=== PATIENT | female | born 1945 | race Caucasian/White ===

== ENCOUNTER 2018-05-14 21:01 | Inpatient (IN) | payer MEDICAID, OTHER ==
[~2018-05-14] VITALS: Ht 167.6 cm; Wt 122.5 kg
--- NOTE | 2018-05-14 21:01 | NUR ---
PT ALINE ALS. TAKEN TO BED 7
[2018-05-14 21:02] VITALS: BP 112/55
[2018-05-14] MEDS ORDERED: NACL 0.9% 500 ML IV SCH (21:06)
[2018-05-14] MEDS ORDERED: DILTIAZEM 25 MG/5 ML VIAL IVP ONE (21:10)
--- NOTE | 2018-05-14 21:10 | NUR ---
73/F BIBA FROM HOME FOR SOB, PRODUCTIVE COUGH, AND L FLANK PAIN, SINCE LAST NIGHT, WORSENING TODAY. PER TRIAGE, PT RECEIVED ALBUTEROL [facility]ATMENT [facility], 20G IV PLACED ON R HAND. PT REPORTS SUBJECTIVE FEVER/CHILLS AND VOMITING X3 EPISODES. PT DENIES CP OR HEADACHE. PT ARRIVES TO ED, AOX4, GCS 15, SKIN NORMAL COLOR WARM AND DRY, SPO2 92% ON O2 2L NC, RR 24 EVEN AND MILDLY LABORED. LUNG SOUNDS CLEAR BL. BP 112/55, HR 132-150, A.FIB ON MONITOR. SPO2 AND CORE BAKER IN PLACE. ER MD MADE AWARE. HX A.FIB, COPD, HTN, GERD, CHOLECYSTECTOMY, 1PPD SMOKER RX OMEPRAZOLE, ELAQUIS, LOSARTAN, LASIX, ALBUTEROL
[2018-05-14 21:32] LABS: HEMATOCRIT 40.5 % (36-48); HEMOGLOBIN 13.5 g/dL (12.0-16.0); MEAN CORPUSCULAR HEMOGLOBIN 33 pg (27-31); MEAN CORPUSCULAR HGB CONC 33 g/dL (33-37); MEAN CORPUSCULAR VOLUME 99.7 fL (80-94); PLATELET COUNT (AUTO) 181 K/uL (140-450); RED BLOOD CELL COUNT(AUTO) 4.07 MIL/uL (4.20-5.40); RED CELL DISTRIBUTION WIDTH 15.2 % (11.6-13.7); WHITE BLOOD COUNT (AUTO) 20.1 K/uL (4.8-10.8)
[2018-05-14 21:39] LABS: ANION GAP 16.1 (8-16); CARBON DIOXIDE 25.5 mmol/L (21-32); CHLORIDE 96 mmol/L (98-107); CREATININE 1.3 mg/dL (0.6-1.3); GLUCOSE 111 mg/dL (74-106); POTASSIUM 3.6 mmol/L (3.5-5.1); SODIUM SERUM 134 mmol/L (136-145); UREA NITROGEN, BLOOD 14 mg/dL (7-18)
[2018-05-14] MEDS ORDERED: KETOROLAC 30 MG/ML VIAL IVP ONE (21:40)
[2018-05-14 21:42] LABS: PROTHROMBIN TIME 12.4 secs (10.8-13.4)
--- NOTE | 2018-05-14 21:42 | NUR ---
Dr. Mckenzie evaluating patient at bedside.
[2018-05-14 21:45] LABS: ALBUMIN 2.9 g/dL (3.4-5.0); ASPARTATE AMINOTRANSFERASE 30 U/L (15-37); TOTAL BILIRUBIN 2.7 mg/dL (0.0-1.0)
[2018-05-14 21:46] LABS: LYMPHOCYTES % (MANUAL) 5 % (20-46); METAMYELOCYTES % 1 % (0-0); MONOCYTES % (MANUAL) 4 % (5-12)
[2018-05-14] MEDS ORDERED: PIPERACILLIN/TAZOBACTAM 3.375 GM in DEXTROSE 5% 50 ML IV ONE (22:00)
--- NOTE | 2018-05-14 22:00 | NUR ---
PT LAYING IN BED, RR EVEN AND MILDLY LABORED, ON O2 3L NC. PT REPORTS IMPROVEMENT IN L FLANK PAIN, REPORTS BEING COMFORTABLE. VS NOTED, HR IMPROVING AT 95-104. ALL NEEDS MET AT THIS TIME.
[2018-05-14] MEDS ORDERED: LOSA25TA43 PO ×2 (22:09→22:57)
[2018-05-14] MEDS ORDERED: PRON INH ×2 (22:09→22:57)
[2018-05-14] MEDS ORDERED: OMEP20TC12 PO ×2 (22:09→22:57)
[2018-05-14] MEDS ORDERED: FURO-572 PO ×2 (22:09→22:57)
[2018-05-14] MEDS ORDERED: APIX5TAB PO ×2 (22:09→22:57)
--- NOTE | 2018-05-14 22:10 | NUR ---
DR DENNY DISCUSSING CODE STATUS WITH PT. PT STATED SHE WANTED TO HAVE CPR PERFORMED BUT REFUSES INTUBATION.
--- NOTE | 2018-05-14 22:10 | NUR ---
DR DENNY AT BEDSIDE.
[2018-05-14] MEDS ORDERED: PIPERACILLIN/TAZOBACTAM 3.375 GM VIAL IV ONE (22:16)
[2018-05-14] MEDS ORDERED: ALBUTEROL SULFATE/IPRATROPIU 3 ML SOL IH PRN (22:35)
[2018-05-14] MEDS ORDERED: ONDANSETRON 4 MG/2 ML VIAL IM/IVP PRN (22:35)
[2018-05-14] MEDS ORDERED: MEDICATION REC. PHARMACY CONS. 1 EA MISC MC PRN (22:35)
[2018-05-14] MEDS ORDERED: MELATONIN 3 MG TAB PO PRN (22:35)
[2018-05-14] MEDS ORDERED: FAMOTIDINE 20 MG TAB PO ONE (22:35)
[2018-05-14] MEDS ORDERED: DOCUSATE SODIUM 100 MG GELCAP PO PRN (22:35)
[2018-05-14 22:53] LABS: APPEARANCE,URINE SL CLOUDY (CLEAR); BILIRUBIN,URINE 2+ (NEGATIVE); BLOOD, URINE 3+ (NEGATIVE); COLOR,URINE YELLOW (YELLOW); LEUKOCYTE ESTERASE ,URINE TRACE (NEGATIVE); NITRITE, URINE POSITIVE (NEGATIVE); UGLUCOSE TRACE (NEGATIVE)
[2018-05-14] MEDS: NICOTINE TRANSD SYS 21 MG/24 HR PATCH TD SCH (23:10)
--- NOTE | 2018-05-14 23:25 | NUR ---
Patient will be admitted to care of DR. HANEY. Admited to TELE. Will go to [id number]. Belongings list completed. Report to JULIO SWEENEY.
[2018-05-14 23:33] LABS: WBC,URINE 0-5 /HPF (0-5)
[2018-05-14 23:35] VITALS: BP 91/44
--- NOTE | 2018-05-14 23:35 | NUR ---
ADMITTED A 73F FROM ER. CAME BY MICH WITH ER NURSE ,GAVE REPORT. PT IS AWAKE,ALERT AND ORIENTED X4. ON O23L/NC. O2 SAT 94%. CAME DUE TO SOB, COUGH AND BACK PAIN X 1 DAY. ABLE TO TRANSFER FROM [facility] TO BED. SHE SAID SHE IS ABLE AMBULATE AT HOME . MADE COMFORTABLE IN BED. PLACED ON TELE MONITOR. SKIN INTACT. PLAN OF CARE DISCUSSED AND VERBALIZED UNDERSTANDING. ORIENTED TO ROOM AND HOSPITAL ROUTINES. BED ON LOWEST POSITION. FREQUENT CHECK NEEDED.CALL LIGHT PLACED WITHIN EASY REACH. WILL FOLLOW UP ADMIT ORDERS. WILL CONTINUE TO MONITOR.
[2018-05-14 23:37] LABS: MAGNESIUM 1.3 mg/dL (1.8-2.4); THYROID STIMULATING HORMONE 1.9 uIU/mL (0.34-3.74)
[2018-05-14] MEDS ORDERED: PETROLATUM WHITE 30 GM TUBE TP SCH (23:40)
[2018-05-15 00:15] LABS: BARBITURATE, URINE NEGATIVE ng/ml (NEG <=200); BENZODIAZEPINE, URINE NEGATIVE ng/mL (NEG <=200); CANNABINOID, URINE NEGATIVE ng/mL (NEG <=50); COCAINE, URINE NEGATIVE ng/mL (NEG <=300); OPIATE, URINE NEGATIVE ng/mL (NEG <=2000); PHENCYCLIDINE SCREEN,URINE NEGATIVE ng/mL (NEG <=25)
[2018-05-15] MEDS: guaiFENesin 20 MG/ML UDC PO PRN (00:28)
[2018-05-15] MEDS: NACL 0.9% 1,000 ML IV SCH ×4 (00:29→23:00)
[2018-05-15] MEDS ORDERED: MAG SULF 2000 MG/WATER PREMIX 50 ML IV SCH (00:30)
--- NOTE | 2018-05-15 00:30 | NUR ---
DAUGHTER ELDER CALLED AND JUST WANTS TO KNOW HOW PT IS DOING. GIVEN UPDATE .
--- NOTE | 2018-05-15 02:04 | NUR ---
PT C/O BACK PAIN . REFUSED ANY TYLENOL. DR. DENNY,RESIDENT MADE AWARE. HEATING PAD APPLIED TO BACK ORDERED. WILL CONTINUE TO MONITOR
--- NOTE | 2018-05-15 02:38 | NUR ---
PT STILL C/O BACK PAIN EVEN WITH K PAD /HEATING PAD . DR. DENNY MADE AWARE . WILL DO ORDERS.
[2018-05-15] MEDS: traMADol 50 MG TAB PO PRN ×3 (02:54→15:42)
[2018-05-15] MEDS ORDERED: KETOROLAC 15 MG/ML VIAL IVP SCH (03:00)
--- NOTE | 2018-05-15 03:54 | NUR ---
MADE ROUNDS. SLEEPING AT THIS TIME. NO S/S OF ANY DISCOMFORT NOR PAIN NOTED. WILL CONTINUE TO MONITOR.
[2018-05-15 06:00] VITALS: BP 98/59
--- NOTE | 2018-05-15 06:00 | NUR ---
ASSISTED UP TO THE BSC. VOIDED TO A DARK BEKAH URINE. ENCOURAGED TO DRINK MORE FLUIDS.
[2018-05-15] MEDS ORDERED: PIPERACILLIN/TAZOBACTAM 2.25 GM VIAL IV ONE (06:07)
[2018-05-15] MEDS ORDERED: PIPERACILLIN/TAZOBACTAM 2.25 GM in DEXTROSE 5% 50 ML IV SCH (07:00)
--- NOTE | 2018-05-15 07:25 | NUR ---
ENDORSED PT IN STABLE CONDITION IN STABLE CONDITION.
--- NOTE | 2018-05-15 07:26 | NUR ---
REPORT RECEIVED FROM MASTER DYER NURSE, PT SLEEPING QUIETLY IN NAD, RESP EVEN UNLABORED ON 3L O2 NC, AROUSES EASILY TO VOICE, DENIES PAIN OR NEEDS AT THIST STEPHANIE, POC REVIEWED, FALLS BACK TO SLEEP IMMEDIATELY, CALL SCHNEIDER WITHIN REACH, ALL SAFETY MEASURES IN PLACE, WILL CONTINUE TO MONITOR.
[2018-05-15 07:42] LABS: ANION GAP 13.8 (8-16); CHLORIDE 100 mmol/L (98-107); CREATININE 1.3 mg/dL (0.6-1.3); GLUCOSE 90 mg/dL (74-106); POTASSIUM 3.8 mmol/L (3.5-5.1); SODIUM SERUM 135 mmol/L (136-145); UREA NITROGEN, BLOOD 19 mg/dL (7-18)
[2018-05-15 07:55] LABS: CHOL/HDL RATIO 1.9 (1-4.5); MAGNESIUM 2.3 mg/dL (1.8-2.4); PHOSPHORUS 3.9 mg/dL (2.5-4.9)
[2018-05-15 08:00] VITALS: BP 105/46
[2018-05-15 08:00] LABS: EOSINOPHILS # (AUTO) 0.1 K/uL (0-0.4); EOSINOPHILS % (AUTO) 0.5 % (0.0-4.0); HEMATOCRIT 36.2 % (36-48); LYMPHOCYTES # (AUTO) 0.3 K/uL (2.5-16.5); LYMPHOCYTES % (AUTO) 1.6 % (20.5-51.1); MEAN CORPUSCULAR HEMOGLOBIN 33 pg (27-31); MEAN CORPUSCULAR HGB CONC 33 g/dL (33-37); MONOCYTES # (AUTO) 3.7 K/uL (0.8-1.0); MONOCYTES % (AUTO) 21.1 % (1.7-9.3); NEUTROPHILS # (AUTO) 13.4 K/uL (1.8-7.7); NEUTROPHILS % (AUTO) 76.8 % (42.2-75.2); PLATELET COUNT (AUTO) 152 K/uL (140-450); RED BLOOD CELL COUNT(AUTO) 3.62 MIL/uL (4.20-5.40); RED CELL DISTRIBUTION WIDTH 15.5 % (11.6-13.7); WHITE BLOOD COUNT (AUTO) 17.4 K/uL (4.8-10.8)
--- NOTE | 2018-05-15 08:11 | NUR ---
US AT BEDSIDE.
--- NOTE | 2018-05-15 08:22 | NUR ---
PATIENT HAS BEEN SCREENED AND CATEGORIZED HIGH NUTRITION RISK. PATIENT WILL BE SEEN WITHIN 1-2 DAYS OF ADMISSION. 05/15/18-05/16/[address]
--- NOTE | 2018-05-15 08:25 | NUR ---
DR HANEY AND MED TEAM AT BEDSIDE.
[2018-05-15] MEDS: FUROSEMIDE 20 MG TAB PO SCH (08:50)
[2018-05-15] MEDS: LACTOBACILLUS RHAMNOSUS GG 1 EACH CAP PO SCH (08:51)
[2018-05-15] MEDS: NICOTINE TRANSD SYS 21 MG/24 HR PATCH TD SCH (08:51)
[2018-05-15] MEDS: LOSARTAN 50 MG TAB PO SCH (08:51)
[2018-05-15] MEDS: APIXABAN 2.5 MG TAB PO SCH ×2 (08:58→21:03)
[2018-05-15] MEDS: PETROLATUM WHITE 30 GM TUBE TP SCH (09:00)
--- NOTE | 2018-05-15 09:05 | NUR ---
PT TO RADIOLOGY FOR XRAY
[2018-05-15] MEDS: ALBUTEROL SULFATE/IPRATROPIU 3 ML SOL IH SCH ×3 (09:16→21:03)
--- NOTE | 2018-05-15 10:28 | NUR ---
PT AT BEDSIDE Addendum: 05/15/18 at 1128 by Jackie Bearden RN PHYSICAL THERAPY
--- NOTE | 2018-05-15 10:39 | NUR ---
TRAMOADOL GIVEN FOR BACK PAIN
--- NOTE | 2018-05-15 11:30 | NUR ---
PT STATES PAIN IN BACK IS IMPROVED AFTER TRAMADOL, DR LINCOLN AT BEDSIDE.
[2018-05-15 12:00] VITALS: BP 92/51
--- NOTE | 2018-05-15 12:23 | NUR ---
ECHO AT BEDSIDE.
[2018-05-15] MEDS: PIPER/TAZO 2.25GM/D5W PREMIX 50 ML IV SCH ×2 (12:54→21:01)
--- NOTE | 2018-05-15 12:55 | NUR ---
RIGHT HAND IV WITH PAIN AND LEAKING, NEW IV STARTED TO RIGHT FA 22G, PT DARLING WELL, SCHEDULED ZOSYN STARTED, IV SITE WNL. HAND IV DC'D, CATH TIP INTACT, BLEEDING CONTROLLED, PT DARLING WELL.
--- NOTE | 2018-05-15 14:22 | NUR ---
RESEARCH ASSOCIATE MOLECULAR BIOLOGY AT BEDSIDE, PT SITTING UP TALKING IN NAD, APPEARS IN NAD, BED LINEN STRAIGHTENED PER PT REQUEST, RE-POSITIONED FOR COMFORT, WILL CONTINUE TO MONITOR
--- NOTE | 2018-05-15 15:42 | NUR ---
PT C/O BACK/RIB PAIN, PT SITTING AT SIDE OF BED, STATES IT FEELS BETTER SITTING UP, TRAMADOL GIVEN, PT VISITING WITH FRIENDS, WILL CONTINUE TO MONTIOR.
--- NOTE | 2018-05-15 15:50 | NUR ---
05/15/18 RD INITIAL ASSESSMENT COMPLETED PLEASE REFER TO NUTRITION ASSESSMENT UNDER CARE ACTIVITY FOR ESTIMATED NUTRITIONAL NEEDS. 1. CONTINUE REGULAR DIET TOLERATED 2. PROVIDE NUTRITION EDUCATION ON A GENERAL HEALTHY DIET ON FOLLOW UP VISIT. 3. RD TO FOLLOW-UP 3-5 DAYS, MODERATE RISK ANDREWS MADRID, CARLOS
[2018-05-15 16:00] VITALS: BP 98/82
--- NOTE | 2018-05-15 16:20 | NUR ---
S.T. BEDSIDE SWALLOW EVAL COMPLETED Pt presents w/ adequate oropharyngeal swallow function. No overt s/s aspiration observed across all textures. Pt is able to self-feed w/o difficulty. Recommend: 1) Continue regular texture diet, thin liquids okay. 2) P.O. meds by mouth, as tolerated. No further tx indicated at this time. DC to [facility]. TIME [phone]
--- NOTE | 2018-05-15 16:54 | NUR ---
R FA IV INFILTRATED, NEW IV STARTED TO LEFT FA, 22G, TORADOL GIVEN FOR CONTINUING PAIN, WILL CONTINUE TO MONITOR
[2018-05-15] MEDS: KETOROLAC 30 MG/ML VIAL IVP PRN ×2 (16:56→22:45)
--- NOTE | 2018-05-15 17:50 | NUR ---
PT SLEEPING QUIETLY IN NO ACUTE DISTRESS, PT REMAINS ON ASSISTANT TEACHER, PT ON ROOM AIR, IVF INFUSING WELL , SITE WNL.
--- NOTE | 2018-05-15 19:22 | NUR ---
REPEORT GIVEN TO BUSINESS IMPROVEMENT MANAGER NURSE ZAHRA, PT IN STABLE CONDITION.
--- NOTE | 2018-05-15 19:25 | NUR ---
RECEIVED PT IN STABLE CONDITION FROM AM NURSE. AWAKE,ALERT AND ORIENTED X4. ON TELE MONITOR -CONTROLLED A FIB. WITH NO C/O ANY DISCOMFORT NOR PAIN NOTED AT THIS TIME. HAS IVF INFUSING WELL ON THE LT FA G# 22. PLAN OF CARE DISCUSSED AND VERBALIZED UNDERSTANDING. BED ON LOW POSITION. SIDE RAILS UP X2. CALL LIGHT PLACED WITHIN REACH. INSTRUCTED TO CALL FOR ANY ASSISTANCE. WILL CONTINUE TO MONITOR.
[2018-05-15 20:00] VITALS: BP 98/41
--- NOTE | 2018-05-15 22:30 | NUR ---
ASSISTED UP TO THE BSC. VOIDED WELL WITH DARK BEKAH COLORED URINE.
--- NOTE | 2018-05-16 | NUR ---
PT IS SLEEPING WELL. AT THIS TIME. NO S/S OF ANY DISTRESS NOTED.
[2018-05-16] MEDS: guaiFENesin 20 MG/ML UDC PO PRN (00:40)
--- NOTE | 2018-05-16 02:30 | NUR ---
MADE ROUNDS. PT ASLEEP. NO S/S OF ANY DISCOMOFRT NOTED.
[2018-05-16 04:10] VITALS: BP 118/61
--- NOTE | 2018-05-16 04:30 | NUR ---
PT AWAKE. ASSISTED UP TO THE BSC. VOIDED. URINE OUTPUT STILL DARK BEKAH .
[2018-05-16] MEDS: PIPER/TAZO 2.25GM/D5W PREMIX 50 ML IV SCH ×3 (04:50→20:58)
[2018-05-16 06:27] LABS: ANION GAP 11.7 (8-16); CARBON DIOXIDE 25.8 mmol/L (21-32); CHLORIDE 102 mmol/L (98-107); CREATININE 1.4 mg/dL (0.6-1.3); GLUCOSE 97 mg/dL (74-106); POTASSIUM 3.5 mmol/L (3.5-5.1); SODIUM SERUM 136 mmol/L (136-145); UREA NITROGEN, BLOOD 24 mg/dL (7-18)
[2018-05-16] MEDS: ALBUTEROL SULFATE/IPRATROPIU 3 ML SOL IH SCH ×3 (06:28→19:59)
--- NOTE | 2018-05-16 06:28 | NUR ---
PT SLEEPING AT THIS TIME NO HHN GIVEN NO DISTRESS NOTED AT THIS TIME
[2018-05-16] MEDS: KETOROLAC 30 MG/ML VIAL IVP PRN (06:32)
[2018-05-16 06:41] LABS: MAGNESIUM 2.2 mg/dL (1.8-2.4); PHOSPHORUS 3.6 mg/dL (2.5-4.9)
--- NOTE | 2018-05-16 07:20 | NUR ---
RECEIVED BEDSIDE REPORT FROM MAKER UP FOLDING NURSE. PATIENT IS AWAKE, ALERT AND ORIENTEDX4. NO SIGNS OF DISTRESS ON RA. SKIN IS INTACT. PATIENT ON FALL RISK PROTOCOL D/T WEAKNESS. L HAND 22G INFUSING NS AT 100. CLEAN, DRY AND INTACT. PATIENT IS CONTINENT. BEDSIDE COMMODE AT BEDSIDE. BED IN LOW POSITION. CALL LIGHT WITHIN REACH. WILL CONTINUE TO MONITOR THE PATIENT, SHE IS ABLE TO MAKE NEEDS KNOWN
[2018-05-16 07:34] LABS: BASOPHILS % (AUTO) 0.2 % (0.0-2.0); EOSINOPHILS # (AUTO) 0.1 K/uL (0-0.4); EOSINOPHILS % (AUTO) 0.8 % (0.0-4.0); HEMATOCRIT 33.2 % (36-48); HEMOGLOBIN 10.9 g/dL (12.0-16.0); LYMPHOCYTES # (AUTO) 0.9 K/uL (2.5-16.5); LYMPHOCYTES % (AUTO) 6.8 % (20.5-51.1); MEAN CORPUSCULAR HEMOGLOBIN 33 pg (27-31); MEAN CORPUSCULAR HGB CONC 33 g/dL (33-37); MEAN CORPUSCULAR VOLUME 100.6 fL (80-94); MONOCYTES # (AUTO) 0.6 K/uL (0.8-1.0); MONOCYTES % (AUTO) 4.3 % (1.7-9.3); NEUTROPHILS # (AUTO) 12.1 K/uL (1.8-7.7); NEUTROPHILS % (AUTO) 87.9 % (42.2-75.2); PLATELET COUNT (AUTO) 131 K/uL (140-450); RED CELL DISTRIBUTION WIDTH 15.5 % (11.6-13.7); WHITE BLOOD COUNT (AUTO) 13.7 K/uL (4.8-10.8)
[2018-05-16 08:00] VITALS: BP 103/56
[2018-05-16] MEDS: LOSARTAN 50 MG TAB PO SCH (09:00)
[2018-05-16] MEDS: APIXABAN 2.5 MG TAB PO SCH ×2 (09:31→21:03)
[2018-05-16] MEDS: PETROLATUM WHITE 30 GM TUBE TP SCH (09:33)
[2018-05-16] MEDS: FUROSEMIDE 20 MG TAB PO SCH (09:33)
[2018-05-16] MEDS: NICOTINE TRANSD SYS 21 MG/24 HR PATCH TD SCH (09:33)
[2018-05-16] MEDS: LACTOBACILLUS RHAMNOSUS GG 1 EACH CAP PO SCH (09:33)
--- NOTE | 2018-05-16 09:51 | NUR ---
ADMINISTERED MEDS. EDUCATED ON SIDE EFFECTS. PATIENT VERBALIZED UNDERSTANDING. NO SIGNS OF DISTRESS. PATIENT IS ABLE TO MAKE NEEDS KNOWN. WILL CONTINUE TO MONITOR. CALL LIGHT WITHIN REACH. PATIENT TO WORK W PT AT THIS TIME. HELD B/P MED PATIENTS B/P BEEN IN THE 90'S. HIGHEST B/P W ME WAS 103/56
[2018-05-16] MEDS ORDERED: BISACODYL 5 MG TABEC PO ONE (10:00)
--- NOTE | 2018-05-16 11:00 | NUR ---
FAMILY AT BEDSIDE. PATIENT IN NO DISTRESS. WILL CONTINUE TO MONITOR THE PATIENT
[2018-05-16 12:00] VITALS: BP 117/59
--- NOTE | 2018-05-16 12:27 | NUR ---
SPOKE WITH GUALBERTO FROM [facility], AND INFORMED HER OF HOME HEALTH ORDER. FAXED FACE SHEET AND ORDER AND P.T. NOTES TO HER AT [phone]
--- NOTE | 2018-05-16 13:10 | NUR ---
PATIENT NO SATISFIED WITH FOOD. GOT PATIENT NEW FOOD AND SHE WAS PLEASED. WILL CONTINUE TO MONITOR THE PATIENT
--- NOTE | 2018-05-16 13:58 | NUR ---
RECEIVED A CALL FROM SUSSY FROM [facility]. SHE SAID OUR DOCTOR NEEDS TO CHANGE THE ADMITTING TO DR. MCKEON AND THE DOCTOR NEED TO NOTIFY DR. MCKEON. I INFORMED DR. LINCOLN AND HE WILL CALL DR. MCKEON C [phone].
--- NOTE | 2018-05-16 14:16 | NUR ---
ADMINISTERED IV ANTIBIOTICS. PATIENT EDUCATED ON SIDE EFFECTS. PATIENT WENT TO BEDSIDE COMMODE AND BACK TO BED W ASSISTANCE. WILL CONTINUE TO MONITOR THE PATIENT
[2018-05-16] MEDS: traMADol 50 MG TAB PO PRN (14:32)
[2018-05-16] MEDS: NACL 0.9% 1,000 ML IV SCH ×2 (14:46→21:01)
--- NOTE | 2018-05-16 15:27 | NUR ---
PATIENT IS SLEEPING. NO SIGNS OF DISTRESS. WILL CONTINUE TO MONITOR THE PATIENT
[2018-05-16 17:00] VITALS: BP 114/65
[2018-05-16] MEDS ORDERED: SODIUM PHOSPHATE 118 ML ENEM RC PRN (17:00)
--- NOTE | 2018-05-16 17:00 | NUR ---
PATIENT JUST WOKE UP. WILL CHECK VITALS NOW. PATIENT HAPPY SHE GOT TO SLEEP.
--- NOTE | 2018-05-16 18:04 | NUR ---
ADMINISTERED FLEET ENEMA, PATIENT HAD A BM AND BACK IN BED. PATIENT SAYS "I FEEL SO MUCH BETTER!" PATIENT BACK IN BED. NO DISTRESS. WILL CONTINUE TO MONITOR THE PATIENT
--- NOTE | 2018-05-16 19:22 | NUR ---
GAVE BEDSIDE REPORT TO STEEL POURER NURSE. PATIENT ENDORSED IN STABLE CONDITION
--- NOTE | 2018-05-16 19:23 | NUR ---
RECEIVED PT FROM VAHID RN PT AAOX4 AMBULATED WITH DRUPAL PHP DEVELOPER USING BSC, IV ON LEFT HAND INFUSING WELL ON TELEMETRY CONTROLLED AFIB RESP THERAPIST IS HERE AND GIVE BREATHING TX
[2018-05-16 20:00] VITALS: BP 133/84
[2018-05-16] MEDS: ACETAMINOPHEN 325 MG TAB PO PRN (21:06)
--- NOTE | 2018-05-16 22:00 | NUR ---
AFTER PAIN MEDIC GIVEN PT IS SLEEPING WELL NOT DISTRESS NOTED ON CONTROLLED AFIB
[2018-05-17] VITALS: BP 118/66
[2018-05-17] MEDS: guaiFENesin 20 MG/ML UDC PO PRN ×2 (00:16→05:47)
--- NOTE | 2018-05-17 01:00 | NUR ---
PT IS ASSISTED TO USED BSC VOIDING WELL AND SMALL BM NOT DISTRESS NOTED ON TELEMETRY CONTROLLED AFIB
--- NOTE | 2018-05-17 03:51 | NUR ---
PT REPOSITIONED Q2H SLEEPING AT THIS TIME ON TELEMETRY CONTROLLED AFIB NOT DISTRESS NOTED
[2018-05-17 04:00] VITALS: BP 115/59
[2018-05-17] MEDS: PIPER/TAZO 2.25GM/D5W PREMIX 50 ML IV SCH (04:42)
[2018-05-17] MEDS: ACETAMINOPHEN 325 MG TAB PO PRN (04:48)
--- NOTE | 2018-05-17 05:05 | NUR ---
SPONGE BATH GIVEN LINEN CHANGED REPOSITIONED, PT CONTROLLED AFIB
--- NOTE | 2018-05-17 06:58 | NUR ---
PT SLEEPING AFTER PAIN MEDIC GIVEN AND COUGH SYRUP GIVEN ON TELMETRY CONTROLLED AFIB PT WILL ENDORSED TODAY SHIFT NURSE FOR CONTINUITY OF CARE
[2018-05-17] MEDS: ALBUTEROL SULFATE/IPRATROPIU 3 ML SOL IH SCH (07:00)
[2018-05-17 07:04] LABS: BASOPHILS % (AUTO) 0.1 % (0.0-2.0); EOSINOPHILS # (AUTO) 0.1 K/uL (0-0.4); EOSINOPHILS % (AUTO) 0.9 % (0.0-4.0); HEMATOCRIT 31.7 % (36-48); HEMOGLOBIN 10.6 g/dL (12.0-16.0); LYMPHOCYTES % (AUTO) 10.8 % (20.5-51.1); MEAN CORPUSCULAR HEMOGLOBIN 34 pg (27-31); MEAN CORPUSCULAR HGB CONC 34 g/dL (33-37); MEAN CORPUSCULAR VOLUME 100.4 fL (80-94); MONOCYTES # (AUTO) 0.5 K/uL (0.8-1.0); MONOCYTES % (AUTO) 5.5 % (1.7-9.3); NEUTROPHILS # (AUTO) 7.6 K/uL (1.8-7.7); NEUTROPHILS % (AUTO) 82.7 % (42.2-75.2); PLATELET COUNT (AUTO) 141 K/uL (140-450); RED BLOOD CELL COUNT(AUTO) 3.16 MIL/uL (4.20-5.40); RED CELL DISTRIBUTION WIDTH 15.4 % (11.6-13.7); WHITE BLOOD COUNT (AUTO) 9.2 K/uL (4.8-10.8)
[2018-05-17 07:13] LABS: POTASSIUM 3.6 mmol/L (3.5-5.1); SODIUM SERUM 141 mmol/L (136-145)
[2018-05-17 07:14] LABS: ANION GAP 11.9 (8-16); CARBON DIOXIDE 27.7 mmol/L (21-32); CHLORIDE 105 mmol/L (98-107); CREATININE 1.2 mg/dL (0.6-1.3); GLUCOSE 118 mg/dL (74-106); UREA NITROGEN, BLOOD 17 mg/dL (7-18)
--- NOTE | 2018-05-17 07:30 | NUR ---
Received bedside report from pm nurse Any. Pt asleep in bed, respirations even & nonlabored on room air, FLACC 0. Left hand IV intact with ongoing NS @ 100ml/hr. Call light within reach.
[2018-05-17 08:00] VITALS: BP 109/54
[2018-05-17] MEDS: LACTOBACILLUS RHAMNOSUS GG 1 EACH CAP PO SCH (09:19)
[2018-05-17] MEDS: LOSARTAN 50 MG TAB PO SCH (09:19)
[2018-05-17] MEDS: FUROSEMIDE 20 MG TAB PO SCH (09:19)
[2018-05-17] MEDS: NICOTINE TRANSD SYS 21 MG/24 HR PATCH TD SCH (09:19)
[2018-05-17] MEDS: PETROLATUM WHITE 30 GM TUBE TP SCH (09:20)
[2018-05-17] MEDS: APIXABAN 2.5 MG TAB PO SCH (09:26)
[2018-05-17] MEDS: traMADol 50 MG TAB PO PRN (09:28)
[2018-05-17] MEDS ORDERED: LEVO750T2 PO (10:22)
[2018-05-17] MEDS: NACL 0.9% 1,000 ML IV SCH (10:32)
--- NOTE | 2018-05-17 13:00 | NUR ---
Written & verbal discharge instructions provided to pt. Pt verbalized understanding & agree with discharge plans. Left hand IV access discontinued.
--- NOTE | 2018-05-17 13:15 | NUR ---
Pt discharged to home at this time. Pt stable, left unit via wheelchair, accompanied by friend. All belongings with pt upon departure. Name bands removed.
== END 2018-05-17 13:15 | disposition home health service (06) | DRG 871 ==
LOC: MED 21:01 → MMU 23:03
PROVIDERS: ADMIT Internal Medicine Pulmonary Disease; ATTEND Internal Medicine Pulmonary Disease
DX: A41.9 Sepsis, unspecified organism (principal); J69.0 Pneumonitis due to inhalation of food and vomit; N17.0 Acute kidney failure with tubular necrosis; E43 Unspecified severe protein-calorie malnutrition; Z68.41 Body mass index [BMI] 40.0-44.9, adult; N39.0 Urinary tract infection, site not specified; D68.9 Coagulation defect, unspecified; E87.1 Hypo-osmolality and hyponatremia; E66.01 Morbid (severe) obesity due to excess calories; E86.0 Dehydration; E80.6 Other disorders of bilirubin metabolism; E83.42 Hypomagnesemia; E87.8 Other disorders of electrolyte and fluid balance, not elsewhere classified; J44.9 Chronic obstructive pulmonary disease, unspecified; F17.210 Nicotine dependence, cigarettes, uncomplicated; R31.9 Hematuria, unspecified; K21.9 Gastro-esophageal reflux disease without esophagitis; I48.2 Chronic atrial fibrillation; F10.10 Alcohol abuse, uncomplicated; I87.8 Other specified disorders of veins; I10 Essential (primary) hypertension; Z88.5 Allergy status to narcotic agent; Z79.899 Other long term (current) drug therapy; Z71.6 Tobacco abuse counseling; Z90.49 Acquired absence of other specified parts of digestive tract; Z82.49 Family history of ischemic heart disease and other diseases of the circulatory system; Z80.0 Family history of malignant neoplasm of digestive organs; Z91.19 Patient's noncompliance with other medical treatment and regimen
CPT/HCPCS: 36415; 71045; 71046; 76700; 76770; 80048; 80053; 80305; 81001; 82150; 82247; 83036; 83605; 83690; 83735; 83880; 84100; 84443; 84484; 85025; 85610; 85730; 87040; 87070; 87081; 87086; 87205; 87804; 92610; 93005; 93970; 94640; 96361; 96365; 96375; 97110; 97116; 97530; 99285; J1885; J2405; J2543; J3475; J3490; J7030; J7060; J7620; Q0092

== ENCOUNTER 2018-09-18 15:52 | Emergency (ER) | payer OTHER ==
[~2018-09-18] VITALS: Ht 167.6 cm; Wt 119.4 kg
[~2018-09-18 15:52] MED LIST: APIX5TAB PO; FURO-572 PO; LEVO750T2 PO; LOSA25TA43 PO; OMEP20TC12 PO; PRON INH
[2018-09-18 16:11] VITALS: BP 116/66
--- NOTE | 2018-09-18 16:18 | NUR ---
PT AMBULATED TO LOBBY AT THIS TIME, VSS
--- NOTE | 2018-09-18 17:04 | NUR ---
PATIENT LEFT WITHOUT BEING SEEN BY DR. graham. NO FURTHER CARE PROVIDED FOR PATIENT.
== END 2018-09-18 17:07 | disposition left against medical advice (07) ==
LOC: MED 15:52
DX: M25.531 Pain in right wrist (principal); M25.532 Pain in left wrist; M25.552 Pain in left hip; M25.551 Pain in right hip; M54.9 Dorsalgia, unspecified; R51 Headache; M54.2 Cervicalgia; Z53.21 Procedure and treatment not carried out due to patient leaving prior to being seen by health care provider

== ENCOUNTER 2018-09-19 12:20 | Emergency (ER) | payer OTHER ==
[~2018-09-19] VITALS: Ht 167.6 cm; Wt 117.9 kg
--- NOTE | 2018-09-19 12:29 | NUR ---
Patient ambulated to bed 11. RN evaluating patient at bedside.
[2018-09-19 12:32] VITALS: BP 121/70
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
--- NOTE | 2018-09-19 13:05 | NUR ---
Patient taken to CT scan via gurney by Anturis.
--- NOTE | 2018-09-19 13:23 | NUR ---
PT RETURNED FROM CT SCAN.
[2018-09-19] MEDS ORDERED: ONDANSETRON 4 MG ODT PO ONE (14:30)
[2018-09-19] MEDS ORDERED: HYDROcodone/APAP 5/325 MG 1 TAB TAB PO ONE (14:30)
--- NOTE | 2018-09-19 14:49 | NUR ---
PT FRIEND IN ER TO DRIVE PT HOME, PT HAS PREVIOUS RX OF NORCO 10MG, NO ADVERSE DRUG REACTION NOTED BEFORE D/C. Patient discharged with v/s stable. Written and verbal after care instructions given and explained. Patient alert, oriented and verbalized understanding of instructions. Ambulatory with steady gait. All questions addressed prior to discharge. ID band removed. Patient advised to follow up with PMD. Rx of MOTRIN, ZOFRAN given. Patient educated on indication of medication including possible reaction and side effects. Opportunity to ask questions provided and answered.
[2018-09-19 14:50] VITALS: BP 125/68
== END 2018-09-19 14:49 | disposition home or self-care (01) ==
LOC: MED 12:20
DX: S16.1XXA Strain of muscle, fascia and tendon at neck level, initial encounter (principal); S20.219A Contusion of unspecified front wall of thorax, initial encounter; R51 Headache; J44.9 Chronic obstructive pulmonary disease, unspecified; K21.9 Gastro-esophageal reflux disease without esophagitis; I10 Essential (primary) hypertension; F17.210 Nicotine dependence, cigarettes, uncomplicated; Z79.899 Other long term (current) drug therapy; Z88.5 Allergy status to narcotic agent; Z88.8 Allergy status to other drugs, medicaments and biological substances; V89.2XXA Person injured in unspecified motor-vehicle accident, traffic, initial encounter; Y93.89 Activity, other specified; Y92.89 Other specified places as the place of occurrence of the external cause; Y99.8 Other external cause status
CPT/HCPCS: 70450; 71045; 72125; 99284; Q0092; Q0162

== ENCOUNTER 2019-01-11 21:45 | Emergency (ER) | payer OTHER | END 2019-01-12 01:40 | disposition home or self-care (01) | LOC: MED 21:45 | DX: M79.18 Myalgia, other site (principal); I10 Essential (primary) hypertension; F17.200 Nicotine dependence, unspecified, uncomplicated; Z90.49 Acquired absence of other specified parts of digestive tract; F10.99 Alcohol use, unspecified with unspecified alcohol-induced disorder; Z98.890 Other specified postprocedural states; Z88.5 Allergy status to narcotic agent; Z79.899 Other long term (current) drug therapy | CPT/HCPCS: 93971; 99284; Q0092 ==

== ENCOUNTER 2019-11-07 23:37 | Emergency (ER) | payer OTHER ==
[~2019-11-07] VITALS: Ht 167.6 cm; Wt 129.9 kg
[2019-11-07 23:42] VITALS: BP 138/97
--- NOTE | 2019-11-07 23:42 | NUR ---
PT AMBULATED TO ER BED 04
[2019-11-07 23:43] VITALS: BP 138/97
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
[2019-11-07] MEDS ORDERED: ALBUTEROL SULFATE/IPRATROPIU 3 ML SOL IH ONE (23:50)
--- NOTE | 2019-11-08 00:05 | NUR ---
EKG PERFORMED AT BEDSIDE 86- A FIB
--- NOTE | 2019-11-08 00:06 | NUR ---
RAD AT BEDSIDE
--- NOTE | 2019-11-08 00:15 | NUR ---
RT AT BEDSIDE
--- NOTE | 2019-11-08 00:15 | NUR ---
LAB AT BEDSIDE
--- NOTE | 2019-11-08 00:25 | NUR ---
PT CHANGED INTO PT GOWN FOR CT SCAN. SOCKS AND BLANKET PROVIDED.
--- NOTE | 2019-11-08 00:26 | NUR ---
KARLA MYERS AT BEDSIDE
[2019-11-08 00:29] LABS: BASOPHILS % (AUTO) 0.4 % (0.0-2.0); EOSINOPHILS # (AUTO) 0.1 K/uL (0-0.4); EOSINOPHILS % (AUTO) 1.8 % (0.0-4.0); HEMATOCRIT 38.6 % (36-48); HEMOGLOBIN 12.8 g/dL (12.0-16.0); LYMPHOCYTES % (AUTO) 29.2 % (20.5-51.1); MEAN CORPUSCULAR HEMOGLOBIN 33 pg (27-31); MEAN CORPUSCULAR HGB CONC 33 g/dL (33-37); MEAN CORPUSCULAR VOLUME 99.8 fL (80-94); MONOCYTES # (AUTO) 0.5 K/uL (0.8-1.0); MONOCYTES % (AUTO) 7.2 % (1.7-9.3); NEUTROPHILS # (AUTO) 4.3 K/uL (1.8-7.7); NEUTROPHILS % (AUTO) 61.4 % (42.2-75.2); PLATELET COUNT (AUTO) 195 K/uL (140-450); RED BLOOD CELL COUNT(AUTO) 3.87 MIL/uL (4.20-5.40)
[2019-11-08] MEDS ORDERED: HYDROcodone/APAP 5/325 MG 1 TAB TAB PO ONE (00:35)
[2019-11-08] MEDS ORDERED: HYDROcodone/APAP 5/325 MG 1 TAB TAB ONE (00:35)
--- NOTE | 2019-11-08 00:37 | NUR ---
PT TAKEN TO CT VIA WHEELCHAIR
[2019-11-08 00:47] LABS: ANION GAP 11.7 (8-16); CARBON DIOXIDE 27.1 mmol/L (21-32); CHLORIDE 105 mmol/L (98-107); CREATININE 1.2 mg/dL (0.6-1.3); GLUCOSE 111 mg/dL (74-106); POTASSIUM 3.8 mmol/L (3.5-5.1); SODIUM SERUM 140 mmol/L (136-145); UREA NITROGEN, BLOOD 8 mg/dL (7-18)
--- NOTE | 2019-11-08 00:47 | NUR ---
PT RETURNED FROM CT VIA WHEELCHAIR. PT PLACED BACK ON CONTRACTS ATTORNEY
[2019-11-08 00:53] LABS: ALBUMIN 2.9 g/dL (3.4-5.0); ASPARTATE AMINOTRANSFERASE 18 U/L (15-37); TOTAL BILIRUBIN 0.4 mg/dL (0.0-1.0)
--- NOTE | 2019-11-08 01:35 | NUR ---
Patient discharged with v/s stable. Written and verbal after care instructions given and explained. Patient verbalized understanding. Ambulatory with steady gait. All questions addressed prior to discharge. Advised to follow up with PMD.
== END 2019-11-08 01:35 | disposition home or self-care (01) ==
LOC: MED 23:37
DX: T18.9XXA Foreign body of alimentary tract, part unspecified, initial encounter (principal); F17.210 Nicotine dependence, cigarettes, uncomplicated; J44.9 Chronic obstructive pulmonary disease, unspecified; I10 Essential (primary) hypertension; I51.89 Other ill-defined heart diseases; K21.9 Gastro-esophageal reflux disease without esophagitis; Z71.6 Tobacco abuse counseling; Z88.6 Allergy status to analgesic agent; Z88.8 Allergy status to other drugs, medicaments and biological substances; Z79.899 Other long term (current) drug therapy; X58.XXXA Exposure to other specified factors, initial encounter; Y93.89 Activity, other specified; Y92.89 Other specified places as the place of occurrence of the external cause; Y99.8 Other external cause status
CPT/HCPCS: 36415; 71045; 74018; 74176; 80053; 84484; 85025; 93005; 94640; 99285; Q0092

== ENCOUNTER 2020-01-07 17:21 | Emergency (ER) | payer OTHER ==
[~2020-01-07] VITALS: Ht 170.2 cm; Wt 132.9 kg
[2020-01-07 17:34] VITALS: BP 132/85
--- NOTE | 2020-01-07 18:20 | NUR ---
PT REFERRED BY HER PCP FOR R/O DVT/PE. PT C/O RIGHT LOWER PAIN WITH WARMNESS AND EDEMA X 1 WEEK. DENIES SOB, SUDDEN ONSET OF CHEST PAIN, FEVER, OR SICK CONTACT. PT REPORTS HAS COUGH WHICH SHE THINKS DUE TO SMOKING. EDEMA ON ALMA DELIA LOWER LEG, RIGHT > THAN THE LEFT.
--- NOTE | 2020-01-07 18:25 | NUR ---
Patient transferred to bed 9 for further care. RN evaluating patient at bedside.
[2020-01-07] MEDS ORDERED: fentaNYL citrate 0.05 MG/ML VIAL IM ONE (18:45)
--- NOTE | 2020-01-07 19:03 | NUR ---
ULTRASOUND AT BEDSIDE
[2020-01-07 19:25] LABS: ANION GAP 11.7 (8-16); ASPARTATE AMINOTRANSFERASE 17 U/L (15-37); CARBON DIOXIDE 28.3 mmol/L (21-32); CHLORIDE 106 mmol/L (98-107); GLUCOSE 96 mg/dL (74-106); SODIUM SERUM 142 mmol/L (136-145); TOTAL BILIRUBIN 0.3 mg/dL (0.0-1.0); UREA NITROGEN, BLOOD 9 mg/dL (7-18)
[2020-01-07 21:06] VITALS: BP 146/85
--- NOTE | 2020-01-07 21:06 | NUR ---
Patient discharged WITH WALKER v/s stable. Written and verbal after care instructions given and explained. Patient alert, oriented and verbalized understanding of instructions. Ambulatory WITH WALKER with steady gait. All questions addressed prior to discharge. ID band removed. Patient advised to follow up with PMD. Rx of PERCOCET AND ZOFRAN given. Patient educated on indication of medication including possible reaction and side effects. Opportunity to ask questions provided and answered.
== END 2020-01-07 21:06 | disposition home or self-care (01) ==
LOC: MED 17:21
DX: R60.0 Localized edema (principal); J44.9 Chronic obstructive pulmonary disease, unspecified; K21.9 Gastro-esophageal reflux disease without esophagitis; I10 Essential (primary) hypertension; F17.210 Nicotine dependence, cigarettes, uncomplicated; Z71.6 Tobacco abuse counseling; Z79.899 Other long term (current) drug therapy; Z88.5 Allergy status to narcotic agent; Z88.8 Allergy status to other drugs, medicaments and biological substances
CPT/HCPCS: 36415; 80053; 93971; 96372; 99284; J3010

== ENCOUNTER 2021-04-07 10:10 | Emergency (ER) | payer OTHER ==
[~2021-04-07] VITALS: Ht 167.6 cm; Wt 127.0 kg
[~2021-04-07 10:10] MED LIST changes: +OMEP-278 PO; -OMEP20TC12 PO
[2021-04-07 10:31] VITALS: BP 141/74
--- NOTE | 2021-04-07 10:49 | NUR ---
pt /o sob and chest pain since this am. pain worse on inspiration, sent by pcp to r/o PE. speaking in full sentences. ambulates to [facility] with steady gait,
[2021-04-07 11:53] LABS: BASOPHILS % (AUTO) 0.3 % (0.0-2.0); EOSINOPHILS # (AUTO) 0.1 K/uL (0-0.4); EOSINOPHILS % (AUTO) 1.9 % (0.0-4.0); HEMATOCRIT 35.8 % (36-48); HEMOGLOBIN 11.9 g/dL (12.0-16.0); LYMPHOCYTES # (AUTO) 1.2 K/uL (2.5-16.5); LYMPHOCYTES % (AUTO) 24.3 % (20.5-51.1); MEAN CORPUSCULAR HEMOGLOBIN 32 pg (27-31); MEAN CORPUSCULAR HGB CONC 33 g/dL (33-37); MEAN CORPUSCULAR VOLUME 94.7 fL (80-94); MONOCYTES # (AUTO) 0.4 K/uL (0.8-1.0); MONOCYTES % (AUTO) 8.6 % (1.7-9.3); NEUTROPHILS # (AUTO) 3.2 K/uL (1.8-7.7); NEUTROPHILS % (AUTO) 64.9 % (42.2-75.2); PLATELET COUNT (AUTO) 204 K/uL (140-450); RED BLOOD CELL COUNT(AUTO) 3.78 MIL/uL (4.20-5.40); RED CELL DISTRIBUTION WIDTH 15.8 % (11.6-13.7); WHITE BLOOD COUNT (AUTO) 4.9 K/uL (4.8-10.8)
[2021-04-07] MEDS ORDERED: fentaNYL citrate 0.05 MG/ML VIAL IVP ONE (11:55)
[2021-04-07 12:26] LABS: ANION GAP 10.3 (8-16); ASPARTATE AMINOTRANSFERASE 18 U/L (15-37); CARBON DIOXIDE 30.4 mmol/L (21-32); CHLORIDE 104 mmol/L (98-107); CREATININE 0.9 mg/dL (0.6-1.3); GLUCOSE 97 mg/dL (74-106); POTASSIUM 3.7 mmol/L (3.5-5.1); SODIUM SERUM 141 mmol/L (136-145); TOTAL BILIRUBIN 0.4 mg/dL (0.0-1.0); UREA NITROGEN, BLOOD 9 mg/dL (7-18)
[2021-04-07 13:48] VITALS: BP 128/74
--- NOTE | 2021-04-07 13:48 | NUR ---
Patient does not wish to proceed with medical care recommended by DR TIMMONS. Patient given information related to possible complications, up to and including , which could occur as a result of leaving hospital at this time. Patient verbalizes understanding of risks involved leaving against medical advice. Patient has signed AMA form.
== END 2021-04-07 13:30 | disposition left against medical advice (07) ==
LOC: MED 10:10
DX: I48.91 Unspecified atrial fibrillation (principal); J44.1 Chronic obstructive pulmonary disease with (acute) exacerbation; F17.210 Nicotine dependence, cigarettes, uncomplicated; Z71.6 Tobacco abuse counseling; K21.9 Gastro-esophageal reflux disease without esophagitis; I10 Essential (primary) hypertension; Z88.8 Allergy status to other drugs, medicaments and biological substances; Z88.5 Allergy status to narcotic agent; Z79.899 Other long term (current) drug therapy
CPT/HCPCS: 36415; 71045; 80053; 83880; 84484; 85025; 85379; 85610; 85730; 93005; 96374; 99285; J3010; Q0092

== ENCOUNTER 2021-12-08 18:55 | Emergency (ER) | payer OTHER ==
[~2021-12-08] VITALS: Ht 175.3 cm; Wt 122.5 kg
[2021-12-08 18:57] VITALS: BP 110/92
[2021-12-08] MEDS ORDERED: ACETAMINOPHEN EXTRA STRENGTH 500 MG TAB PO ONE (19:05)
[2021-12-08] MEDS ORDERED: ACETAMINOPHEN EXTRA STRENGTH 500 MG TAB ONE (19:06)
--- NOTE | 2021-12-08 19:11 | NUR ---
COVID BRIAN, FLU SWABS DONE.
[2021-12-08] MEDS ORDERED: ALBUTEROL SULFATE/IPRATROPIU 3 ML SOL IH ONE (19:40)
[2021-12-08] MEDS ORDERED: NACL 0.9% 1,000 ML IV ONE (19:40)
[2021-12-08 20:16] LABS: BASOPHILS % (AUTO) 0.4 % (0.0-2.0); HEMATOCRIT 37.3 % (36-48); HEMOGLOBIN 12.5 g/dL (12.0-16.0); LYMPHOCYTES # (AUTO) 0.5 K/uL (2.5-16.5); LYMPHOCYTES % (AUTO) 3.8 % (20.5-51.1); MEAN CORPUSCULAR HEMOGLOBIN 32 pg (27-31); MEAN CORPUSCULAR HGB CONC 34 g/dL (33-37); MEAN CORPUSCULAR VOLUME 94.6 fL (80-94); MONOCYTES # (AUTO) 0.9 K/uL (0.8-1.0); MONOCYTES % (AUTO) 7.6 % (1.7-9.3); NEUTROPHILS % (AUTO) 88.2 % (42.2-75.2); PLATELET COUNT (AUTO) 187 K/uL (140-450); RED BLOOD CELL COUNT(AUTO) 3.95 MIL/uL (4.20-5.40); RED CELL DISTRIBUTION WIDTH 15.5 % (11.6-13.7); WHITE BLOOD COUNT (AUTO) 12.5 K/uL (4.8-10.8)
[2021-12-08 20:31] LABS: ALBUMIN 2.7 g/dL (3.4-5.0); ANION GAP 14.3 (8-16); ASPARTATE AMINOTRANSFERASE 60 U/L (15-37); CARBON DIOXIDE 26.7 mmol/L (21-32); CHLORIDE 98 mmol/L (98-107); CREATININE 1.2 mg/dL (0.6-1.3); GLUCOSE 126 mg/dL (74-106); SODIUM SERUM 135 mmol/L (136-145); TOTAL BILIRUBIN 0.6 mg/dL (0.0-1.0); UREA NITROGEN, BLOOD 10 mg/dL (7-18)
[2021-12-08] MEDS ORDERED: methylPREDNISolone SS 125 MG in WATER STERILE 2 ML IV SCH (21:50)
--- NOTE | 2021-12-08 21:57 | NUR ---
[facility] CALLED REQUESTING INFORMATION, WILL ARRANGE TRANSPORT [phone]
[2021-12-09 01:30] VITALS: BP 107/58
--- NOTE | 2021-12-09 02:23 | NUR ---
Report given to Cecilio at [facility]. Awaiting transport.
--- NOTE | 2021-12-09 02:58 | NUR ---
[facility] ARRIVED FOR TRANSPORT TO [facility]
--- NOTE | 2021-12-09 03:03 | NUR ---
Report given to EMS. Transfer consent signed by pt. Pt has all belongings, all questions answered.
--- NOTE | 2021-12-10 08:34 | NUR ---
LATE ENTRY-IVF/IVP MEDS
== END 2021-12-09 03:03 | disposition short-term general hospital (02) ==
LOC: MED 18:55
DX: J44.1 Chronic obstructive pulmonary disease with (acute) exacerbation (principal); Z20.822 Contact with and (suspected) exposure to COVID-19; I48.91 Unspecified atrial fibrillation; R09.02 Hypoxemia; I10 Essential (primary) hypertension; K21.9 Gastro-esophageal reflux disease without esophagitis; Z91.040 Latex allergy status; Z88.5 Allergy status to narcotic agent
CPT/HCPCS: 36415; 71045; 80053; 83605; 84484; 85025; 87040; 87426; 87804; 93005; 94640; 99291; J7030

== ENCOUNTER 2022-01-21 16:25 | Emergency (ER) | payer OTHER ==
[~2022-01-21] VITALS: Ht 177.8 cm; Wt 90.7 kg
[2022-01-21 16:34] VITALS: BP 111/59
[2022-01-21 17:13] LABS: BASOPHILS % (AUTO) 0.7 % (0.0-2.0); EOSINOPHILS # (AUTO) 0.2 K/uL (0-0.4); EOSINOPHILS % (AUTO) 2.7 % (0.0-4.0); HEMATOCRIT 33.3 % (36-48); HEMOGLOBIN 10.8 g/dL (12.0-16.0); LYMPHOCYTES # (AUTO) 1.4 K/uL (2.5-16.5); LYMPHOCYTES % (AUTO) 21.3 % (20.5-51.1); MEAN CORPUSCULAR HEMOGLOBIN 30 pg (27-31); MEAN CORPUSCULAR HGB CONC 32 g/dL (33-37); MEAN CORPUSCULAR VOLUME 93.8 fL (80-94); MONOCYTES # (AUTO) 0.6 K/uL (0.8-1.0); MONOCYTES % (AUTO) 8.5 % (1.7-9.3); NEUTROPHILS # (AUTO) 4.5 K/uL (1.8-7.7); NEUTROPHILS % (AUTO) 66.8 % (42.2-75.2); PLATELET COUNT (AUTO) 245 K/uL (140-450); RED BLOOD CELL COUNT(AUTO) 3.55 MIL/uL (4.20-5.40); RED CELL DISTRIBUTION WIDTH 17.1 % (11.6-13.7); WHITE BLOOD COUNT (AUTO) 6.7 K/uL (4.8-10.8)
[2022-01-21 17:28] LABS: ALBUMIN 2.6 g/dL (3.4-5.0); ANION GAP 12.8 (8-16); ASPARTATE AMINOTRANSFERASE 14 U/L (15-37); CARBON DIOXIDE 29.4 mmol/L (21-32); CHLORIDE 102 mmol/L (98-107); CREATININE 1.1 mg/dL (0.6-1.3); GLUCOSE 98 mg/dL (74-106); POTASSIUM 4.2 mmol/L (3.5-5.1); SODIUM SERUM 140 mmol/L (136-145); TOTAL BILIRUBIN 0.5 mg/dL (0.0-1.0); UREA NITROGEN, BLOOD 11 mg/dL (7-18)
[2022-01-21] MEDS ORDERED: FUROSEMIDE 100 MG/10 ML VIAL IVP ONE (17:40)
--- NOTE | 2022-01-21 19:50 | NUR ---
SPOKE TO LAUREN FROM [employer] FOR PT INFORMATION. PT WILL BE TRANSFERED OUT UNLESS NO BEDS AVAILABLE. AWAITING CALL BACK WITH FURTHER INSTRUCTIONS.
[2022-01-21] MEDS ORDERED: MORPHINE SULFATE 4 MG/ML SYR IVP ONE (20:35)
--- NOTE | 2022-01-21 22:59 | NUR ---
CALLED [facility] TO GIVE REPORT TO JULIO ALLEN.
--- NOTE | 2022-01-21 23:24 | NUR ---
[facility] TRANSPORT AT BEDSIDE
--- NOTE | 2022-01-21 23:42 | NUR ---
PT TAKEN BY [facility]
[2022-01-21 23:46] VITALS: BP 95/58
--- NOTE | 2022-01-21 23:50 | NUR ---
Patient Tranfers to outside Facility kaylan lennon Physician: Dr. Juarez Location: [place], [place]
--- NOTE | 2022-01-21 23:52 | NUR ---
Patient discharged with v/s stable. Written and verbal after care instructions given and explained. Patient verbalized understanding. Ambulance Transport arranged to [facility]. All questions addressed prior to discharge. Advised to follow up with PMD. no further questions or concerns. understands need for transfer.
== END 2022-01-21 23:42 | disposition short-term general hospital (02) ==
LOC: MED 16:25
DX: I50.9 Heart failure, unspecified (principal); Z20.822 Contact with and (suspected) exposure to COVID-19; M79.89 Other specified soft tissue disorders; J44.9 Chronic obstructive pulmonary disease, unspecified; K21.9 Gastro-esophageal reflux disease without esophagitis; I10 Essential (primary) hypertension; Z79.899 Other long term (current) drug therapy; Z88.5 Allergy status to narcotic agent; Z88.8 Allergy status to other drugs, medicaments and biological substances
CPT/HCPCS: 36415; 71045; 80053; 83735; 83880; 84484; 85025; 87426; 96374; 96375; 99285; J1940; J2270; Q0092

== ENCOUNTER 2022-12-29 19:04 | Observation (INO) | payer OTHER ==
[~2022-12-29] VITALS: Ht 170.2 cm; Wt 119.3 kg
[2022-12-29 19:16] VITALS: BP 111/56; PULSE 92; RESP 15; TEMP 97.6; O2SAT 97
[2022-12-29] MEDS ORDERED: FUROSEMIDE 40 MG/4 ML VIAL IVP ONE (22:25)
[2022-12-29] MEDS ORDERED: VANCOMYCIN 1,000 MG in DEXTROSE 5% 250 ML IV ONE (22:30)
[2022-12-29 22:54] LABS: BASOPHILS % (AUTO) 0.6 % (0.0-2.0); EOSINOPHILS # (AUTO) 0.1 K/uL (0-0.4); EOSINOPHILS % (AUTO) 2.5 % (0.0-4.0); HEMATOCRIT 30.2 % (36-48); HEMOGLOBIN 9.7 g/dL (12.0-16.0); LYMPHOCYTES # (AUTO) 1.5 K/uL (2.5-16.5); LYMPHOCYTES % (AUTO) 25.1 % (20.5-51.1); MEAN CORPUSCULAR HEMOGLOBIN 29 pg (27-31); MEAN CORPUSCULAR HGB CONC 32 g/dL (33-37); MEAN CORPUSCULAR VOLUME 89.4 fL (80-94); MONOCYTES # (AUTO) 0.6 K/uL (0.8-1.0); MONOCYTES % (AUTO) 10.3 % (1.7-9.3); NEUTROPHILS # (AUTO) 3.7 K/uL (1.8-7.7); NEUTROPHILS % (AUTO) 61.5 % (42.2-75.2); PLATELET COUNT (AUTO) 223 K/uL (140-450); RED BLOOD CELL COUNT(AUTO) 3.38 MIL/uL (4.20-5.40); RED CELL DISTRIBUTION WIDTH 17.2 % (11.6-13.7); WHITE BLOOD COUNT (AUTO) 6.1 K/uL (4.8-10.8)
[2022-12-29] MEDS ORDERED: VANCOMYCIN 1,000 MG VIAL ONE (23:02)
[2022-12-29 23:09] LABS: LACTIC ACID 1.2 mmol/L (0.4-2.0)
[2022-12-29] MEDS ORDERED: KETOROLAC 30 MG/ML VIAL IVP ONE (23:15)
[2022-12-29 23:18] LABS: ALANINE AMINOTRANSFERASE 9 U/L (12-78); ALBUMIN 2.7 g/dL (3.4-5.0); ALKALINE PHOSPHATASE 148 U/L (50-136); ANION GAP 8.8 (8-16); ASPARTATE AMINOTRANSFERASE 14 U/L (15-37); CALCIUM 8.4 mg/dL (8.5-10.1); CARBON DIOXIDE 30.8 mmol/L (21-32); CHLORIDE 105 mmol/L (98-107); CREATININE 1.2 mg/dL (0.6-1.3); GLUCOSE 97 mg/dL (74-106); POTASSIUM 3.6 mmol/L (3.5-5.1); SODIUM SERUM 141 mmol/L (136-145); TOTAL BILIRUBIN 0.4 mg/dL (0.0-1.0); TOTAL PROTEIN, SERUM 7.2 g/dL (6.4-8.2); UREA NITROGEN, BLOOD 11 mg/dL (7-18)
[2022-12-30 04:00] LABS: APPEARANCE,URINE CLEAR (CLEAR); BILIRUBIN,URINE NEGATIVE (NEGATIVE); BLOOD, URINE NEGATIVE (NEGATIVE); COLOR,URINE YELLOW (YELLOW); LEUKOCYTE ESTERASE ,URINE NEGATIVE (NEGATIVE); NITRITE, URINE NEGATIVE (NEGATIVE); PROTEIN,URINE NEGATIVE (NEGATIVE); UGLUCOSE NEGATIVE (NEGATIVE); UROBILINOGEN,URINE 0.2 EU/dL (0.2 - 1)
[2022-12-30] MEDS ORDERED: ZOLPIDEM 5 MG TAB PO PRN (05:50)
[2022-12-30] MEDS ORDERED: POTASSIUM CHLORIDE 10 MEQ TABER PO PRN (05:50)
[2022-12-30] MEDS ORDERED: DOCUSATE SODIUM 100 MG GELCAP PO PRN (05:50)
[2022-12-30] MEDS ORDERED: ACETAMINOPHEN 325 MG TAB PO PRN (05:50)
[2022-12-30] MEDS ORDERED: NACL 0.9% 1,000 ML IV SCH (05:50)
[2022-12-30] MEDS ORDERED: ONDANSETRON 4 MG/2 ML VIAL IM/IVP PRN (05:50)
[2022-12-30] MEDS ORDERED: guaiFENesin DM 200/20 MG-10 ML 10 ML UDC PO PRN (05:50)
[2022-12-30] MEDS ORDERED: KETOROLAC 30 MG/ML VIAL IVP PRN ×2 (06:10→08:12)
[2022-12-30] MEDS ORDERED: OMEP20EC11 PO (06:33)
[2022-12-30] MEDS ORDERED: RIVA20TA PO (06:33)
[2022-12-30] MEDS ORDERED: AMLO5TAB PO (06:33)
[2022-12-30 08:00] VITALS: BP 119/76; PULSE 16; RESP 18; TEMP 97.1; O2SAT 97
[2022-12-30] MEDS ORDERED: ALBUTEROL SULFATE/IPRATROPIU 3 ML SOL IH PRN (08:30)
[2022-12-30] MEDS ORDERED: HYDROcodone/APAP 5/325 MG 1 TAB TAB PO PRN (08:30)
[2022-12-30] MEDS ORDERED: VANCOMYCIN PER PHARMACY MC PRN (08:35)
[2022-12-30] MEDS ORDERED: APIXABAN 2.5 MG TAB PO SCH (09:00)
[2022-12-30] MEDS ORDERED: PANTOPRAZOLE 40 MG TABEC PO SCH (09:00)
[2022-12-30] MEDS ORDERED: CEPH-588 PO (09:01)
[2022-12-30] MEDS ORDERED: VANCOMYCIN 1,000 MG in DEXTROSE 5% 250 ML IV SCH (21:00)
== END 2022-12-30 08:50 | disposition left against medical advice (07) ==
LOC: MED 19:04 → MMU 12-30 02:59 → UNDOADMIN 12-30 02:59 → MMU 12-30 05:48 → UNDODEPER 12-30 09:02
PROVIDERS: ADMIT Student in an Organized Health Care Education/Training Program; ATTEND Student in an Organized Health Care Education/Training Program
DX: L03.311 Cellulitis of abdominal wall (principal); I48.91 Unspecified atrial fibrillation; I11.0 Hypertensive heart disease with heart failure; I50.9 Heart failure, unspecified; J44.9 Chronic obstructive pulmonary disease, unspecified; K21.9 Gastro-esophageal reflux disease without esophagitis; E66.01 Morbid (severe) obesity due to excess calories; Z79.899 Other long term (current) drug therapy
CPT/HCPCS: 36415; 71045; 80053; 81003; 83605; 83880; 85025; 87040; 87086; 96361; 96365; 96374; 96375; 96376; 99284; G0378; J1885; J1940; J3370; J0696; J7060